=== PATIENT | female | born 1965 | race Caucasian/White ===

== ENCOUNTER 2024-02-27 20:14 | Emergency (ER) | payer BC ==
[2024-02-27] MEDS: Take Home: Cyclobenzaprine 10 MG Tab, 4 Tab Pack PO ONE (21:33)
== END 2024-02-27 21:35 | disposition home or self-care (01) ==
LOC: VM.ED 20:14 → SUPCPDRO 20:14 → VM.ED 21:35
DX: G89.18 Other acute postprocedural pain (principal); Z98.890 Other specified postprocedural states; Z88.1 Allergy status to other antibiotic agents; Z88.8 Allergy status to other drugs, medicaments and biological substances
CPT/HCPCS: 99283; A9270-GY